=== PATIENT | female | born 1975 | race Caucasian/White ===

== ENCOUNTER → 2016-12-20 | Outpatient (CLI) | payer BC ==
--- NOTE | 2016-12-20 12:48 | MAMMOGRAPHY REPORT ---
BILATERAL DIGITAL SCREENING MAMMOGRAM TOMOSYNTHESIS WITH CAD: 12/20/2016 CLINICAL HISTORY: Routine screening. Patient has no complaints. TECHNIQUE: Breast tomosynthesis in addition to standard 2D mammography was performed. Current study was also evaluated with a Computer Aided Detection (CAD) system. COMPARISON: Comparison is made to exams dated: 01/28/2015 ultrasound, 01/28/2015 mammogram, 01/21/2015 m ammogram, 10/09/2013 mammogram - [facility] [address], and 03/15/2009. BREAST COMPOSITION: There are scattered areas of fibroglandular density in both breasts. FINDINGS: No suspicious masses, calcifications, or areas of architectural distortion are noted in e ither breast. There has been no significant interval change compared to prior exams. IMPRESSION: ACR BI-RADS CATEGORY 1: NEGATIVE There is no mammographic evidence of malignancy. A 1 year screening mammogram is recommended. The p atient will receive written notification of the results. Approximately 10% of breast cancers are not detected with mammography. A negative mammographic repor t should not delay biopsy if a clinically suggestive mass is present. Gemma Humphreys M.D. /:12/20/2016 10:55:43 Lithopone Charger: Belem Padilla, [facility] [address] letter sent: Normal 1/2 BI-RADS Code: ACR BI-RADS Category 1: Negative
== END | disposition home or self-care (01) ==
LOC: C.MAMM 10:32
PROVIDERS: ATTEND Physician Assistant
DX: Z12.31 Encounter for screening mammogram for malignant neoplasm of breast (principal)

== ENCOUNTER 2018-11-14 09:15 | Observation (INO) ==
--- NOTE | 2018-10-24 12:01 | Anesthesiology Consultation ---
Date of Service October 24, 2018 Assessment & Plan (1) Encounter for pre-operative examination: Chart Review Chart Review: Acceptable Risk for Surgery and Patient seen in Pre Admission Testing Consults Requested none Teaching & Discussion Pre-Anesthesia Teaching/Discussion Notes: Instructed NPO after midnight before surgery, except medications with 15 cc of water. Medication instructions provided according to the PAT guidelines. History Surgery Operation Date: 11/14/18 08:35 Proposed Procedures p Robotic Total Laparoscopic Hysterectomy - Javan Fry MD, FACOG Height/Weight Height: 5 ft 6 in Weight: 70.1 kg Allergies Allergy/AdvReac Type Severity Reaction Status Date / Time aspirin Allergy Unknown HIVES Verified 10/17/18 10:47 Penicillins Allergy Unknown HIVES Verified 10/17/18 10:47 Sulfa (Sulfonamide Allergy Unknown HIVES Verified 10/17/18 10:47 Antibiotics) sulfamethoxazole Allergy Unknown Verified 04/04/15 06:22 Medications Home Medications Medication Instructions Recorded Confirmed Last Taken No Known Home Medications 10/17/18 10/17/18 Unknown Past Medical History Medical History Abnormal vaginal bleeding current issue Past Family History Family History Mother FHx: breast cancer Past Surgical History Surgical History History of endometrial ablation Hx of sinus surgery Past Anesthesia History No Hx of Anesthesia Complications and No Family Hx of Anesthesia Complications History of PONV No Motion Sickness Screening History of Motion Sickness: Yes Social History Smoking Status: Never smoker Do You Dip or Chew Tobacco: No Hx Alcohol Use: Yes Alcohol type: wine alcohol intake frequency: a few times a month Hx Substance Use: No Exercise / Class Metabolic Activity II 4-5 Yardwork/Stairs/Walk up hill (7-12K steps per day per fitbit. Able to climb FOS. Denies CP or SOB. ) Review of Systems Patient denies chest pain, shortness of breath, dyspnea on exertion, joint pain , reflux, cough, wheezing, palpitations. Physical Exam Vital Signs BP: 111/78 P: 84 R: 12 T: 98.4 SPO2: 97% on RA ENMT Thyromental Distance: < 3.5 Finger Breadths (3) Mallampati Class: I Neck normal visual inspection and trachea midline; neck extension not limited Respiratory normal respiratory effort Auscultation: lungs clear to auscultation bilaterally Cardiovascular Rate/Rhythm: regular rate and regular rhythm Heart Sounds: no murmur Vessels: no carotid bruit Neurologic moves all extremities Psychiatric Orientation: alert and oriented x 3 Testing Laboratory Results 10/24/18 11:50 10/24/18 11:50 Blood Type A Positive 10/24/18 11:50 Antibody Screen NEGATIVE 10/24/18 11:50
[2018-10-24 12:45] LABS: Basophils # (auto) 0.02 K/uL (0-0.2); Basophils % (auto) 0.2 %; Eosinophils # (auto) 0.04 K/uL (0-0.5); Eosinophils % (auto) 0.5 %; Hematocrit (blood only) 38.4 % (37-47); Hemoglobin 12.7 g/dL (12.0-16.0); Immature Granulocytes # (auto) 0.02 K/uL (0.00-0.02); Immature Granulocytes % (auto) 0.2 %; Lymphocytes # (auto) 1.58 K/uL (1.2-3.4); Lymphocytes % (auto) 17.9 %; Mean Corpuscular Hgb Conc 33.1 g/dL (32-36); Mean Corpuscular Volume 90.1 fL (80-100); Monocytes # (auto) 0.55 K/uL (0.11-0.59); Monocytes % (auto) 6.2 %; Neutrophils # (auto) 6.63 K/uL (1.4-6.5); Platelet Count 247 K/uL (130-400); RDW Coefficient of Variation 13.3 % (11.5-14.5); RDW Standard Deviation 43.7 fL (36.4-46.3); Red Blood Count 4.26 M/uL (4.2-5.4); White Blood Count 8.84 K/uL (4.8-10.8)
[2018-10-24 12:51] LABS: BUN Creatinine Ratio 23.8 (10-20); Calcium 9.1 mg/dl (8.5-10.1); Creatinine Clr Calc Pharmacy 98.4 ml/min; Est GFR (African American) 123.6; Est GFR (Non-African American) 106.6; Potassium 3.6 mmol/L (3.5-5.1)
[~2018-11-14 09:15] MED LIST: ACETAMINOPHEN 1000 MG/100 ML IV IV ONE; CLINDAMYCIN 600 MG/54 ML BAG IV SCH; LACTATED RINGER'S 1,000 ML IV SCH; LR 15ML/HR IV SCH
[2018-11-14] MEDS ORDERED: ONDANSETRON INJ 2 MG/ML 2 ML VIAL IV PRN ×2 (10:10→13:28)
[2018-11-14] MEDS ORDERED: ATROPINE SULFATE 0.1 MG/ML 10ML SYR IV PRN (10:10)
[2018-11-14] MEDS ORDERED: NALOXONE HCL 0.4 MG/1 ML VIAL/CARP IV PRN (10:10)
[2018-11-14] MEDS ORDERED: HYDROmorphone INJ 1 MG/ML SYRINGE IV PRN (10:10)
[2018-11-14] MEDS ORDERED: FLUMAZENIL 0.1 MG/1 ML 10 ML VIAL IV PRN (10:10)
[2018-11-14] MEDS ORDERED: PROMETHAZINE HCL 12.5 MG in SODIUM CHLORIDE 0.9% 50 ML IV PRN ×2 (10:10→13:28)
[2018-11-14] MEDS ORDERED: ePHEDrine sulfate 50 MG/ML AMP IV PRN (10:10)
[2018-11-14] MEDS ORDERED: LABETALOL HCL IV 5 MG/ML 20ML IV PRN (10:10)
[2018-11-14] MEDS ORDERED: GENTAMICIN SULFATE 100 MG in DEXTROSE 5% 100 ML IV SCH (10:30)
[2018-11-14] MEDS ORDERED: fentaNYL citrate 100 MCG/2 ML VIAL ONE (10:51)
[2018-11-14] MEDS ORDERED: MIDAZOLAM HCL 1 MG/ML 2ML VIAL ONE (10:51)
[2018-11-14] MEDS ORDERED: HYDROmorphone INJ 2 MG/ML SYR/VIAL ONE (10:52)
[2018-11-14] MEDS ORDERED: KETAMINE HCL INJ 50 MG/ML 10 ML VIAL ONE (10:52)
--- NOTE | 2018-11-14 11:01 | History & Physical Bridge Note ---
Date of Service November 14, 2018 History & Physical Bridge Note I have examined the patient, reviewed the History & Physical and in the interval since the performance of the History & Physical I have noted the following changes of clinical significance: no changes noted
[2018-11-14] MEDS ORDERED: LIDOCAINE HCL 2% 2 ML VIAL/AMP(20MG/ML) INFIL ONE (11:13)
[2018-11-14] MEDS ORDERED: DEXAMETHASONE SOD INJ 4 MG/ML VIAL ONE (11:13)
[2018-11-14] MEDS ORDERED: PROPOFOL IV EMULSION 10 MG/ML 20 ML VIAL IV ONE (11:13)
[2018-11-14] MEDS ORDERED: ROCURONIUM BROMIDE 10 MG/ML 5 ML VIAL ONE (11:13)
[2018-11-14] MEDS ORDERED: ONDANSETRON INJ 2 MG/ML 2 ML VIAL ONE (11:13)
[2018-11-14] MEDS ORDERED: BUPIVACAINE 0.5 % 5 MG/1 ML MPF 30ML VIAL ONE (11:15)
[2018-11-14] MEDS ORDERED: METHYLENE BLUE 0.5% 10 ML VIAL ONE (11:16)
[2018-11-14] MEDS ORDERED: TISSEEL FIBRIN SEALANT 4ML TOP ONE (12:44)
[2018-11-14] MEDS ORDERED: BISACODYL 10 MG SUPP PR PRN (13:28)
[2018-11-14] MEDS ORDERED: MEPERIDINE HCL 50 MG/ML CARP IV PRN (13:28)
[2018-11-14] MEDS ORDERED: ZOLPIDEM TARTRATE 5 MG TAB PO PRN (13:28)
[2018-11-14] MEDS ORDERED: SIMETHICONE 80 MG CHEW PO PRN (13:28)
[2018-11-14] MEDS ORDERED: MAGNESIUM HYDROXIDE SUSP 30 ML UDC PO PRN (13:28)
[2018-11-14] MEDS ORDERED: OXYCODONE/ACETAMINOPHEN 5mg/325mg TAB PO PRN ×2 (13:28)
--- NOTE | 2018-11-14 13:28 | Post Operative Brief Note ---
Immediate Post Op Note v1 Date of Surgery November 14, 2018 Pre & Post Diagnosis Operation Date: 11/14/18 10:55 Pre-Op Diagnosis: Menorrhagia and Dysmenorrhea Post-Op Diagnosis: Menorrhagia and Dysmenorrhea Procedure Operation Date: 11/14/18 10:55 Actual Procedures p Robotic Assisted Total Laparoscopic Hysterectomy with Bilateral Salpingectomies, and Cystoscopy(Not Applicable) - Javan Fry MD, FACOG Surgeon Javan Fry MD, FACOG Cultural Centre Manager none Estimated Blood Loss 10 Findings Consistent with Post-Op Diagnosis Drains Mendez Catheter (18 Fr. )
--- NOTE | 2018-11-14 14:42 | Anesthesiology Progress Note ---
Date of Service November 14, 2018 Anesthesia Post Procedure Vital Signs Vital Signs: Temp Pulse Pulse Resp BP Pulse Ox 11/14/18 14:25 71 20 106/68 96 11/14/18 14:15 73 17 107/71 96 11/14/18 14:05 67 14 104/70 100 11/14/18 13:55 84 15 107/68 100 11/14/18 13:49 36.0 C L 85 13 101/76 100 11/14/18 09:36 37.2 C 98 H 18 127/80 98 Pain Intensity Abdomen: Pain Intensity: 2 Notes Mental Status: alert / awake / arousable Patient Amnestic to Procedure: Yes Nausea / Vomiting: adequately controlled Pain: adequately controlled Airway Patency, RR, SpO2: stable & adequate BP & HR: stable & adequate Hydration State: stable & adequate Anesthetic Complications: no major complications apparent
[2018-11-14] MEDS ORDERED: ACETAMINOPHEN 325 MG TAB PO PRN (15:45)
[2018-11-14] MEDS ORDERED: LACTATED RINGER'S 1,000 ML IV SCH (15:45)
[2018-11-14] MEDS ORDERED: KETOROLAC 30 MG/ML VIAL IV PRN (16:00)
[2018-11-14] MEDS ORDERED: IBUPROFEN 600 MG TAB PO PRN (18:17)
[2018-11-14] MEDS ORDERED: DOCUSATE SODIUM 100 MG CAP PO SCH (21:00)
--- NOTE | 2018-11-16 09:28 | Operative Report ---
DATE OF OPERATION: 11/14/2018 PREOPERATIVE DIAGNOSES: Menorrhagia, dysmenorrhea. POSTOPERATIVE DIAGNOSES: Menorrhagia, dysmenorrhea. PROCEDURE: Total laparoscopic hysterectomy, bilateral salpingectomy, cystoscopy. SURGEON: Dr. Fry. HIDES AND SKINS COLORER: None. ESTIMATED BLOOD LOSS: 10 mL. SPECIMENS: Uterus, fallopian tubes, cervix. DRAINS: Mendez catheter. ANESTHETIC: General. COMPLICATIONS: None. DESCRIPTION OF PROCEDURE: The patient was given a general anesthetic, prepped and draped in dorsal lithotomy position in [facility]. Bladder drained with a Mendez catheter. V-Care inserted into the uterus in usual fashion. Gloves changed and a subumbilical incision was made with scalpel. Using Saima technique, we did a cut down into the peritoneal cavity. Blunt-tipped Saima trocar placed. Balloon inflated to stabilize the port. CO2 gas used to insufflate the peritoneal cavity. FINDINGS: Upper abdomen normal, no sign of visceral organ injury. Deep Trendelenburg position then obtained. Normal adnexa, normal uterus. Ureters follows a normal course. DESCRIPTION OF PROCEDURE: Two robotic ports, 1 in the left, 1 in the right placed and left upper quadrant accessory port 11 mm bladeless placed. Robot docked. Arm #1 was the monopolar alvin needle putaway driver. Arm #2 was the bipolar [place]. The procedure was begun by first removing the fallopian tubes, 1 on the left, 1 on the right. These were done using electrosurgery and then removing the tube through the accessory port. We then identified the course of the ureter on the left side and then we were able to coagulate the blood supply distal to the left ovary with the bipolar [place] and monopolar alvin to cut this. We were well away from the left ureter. Round ligament coagulated and cut. Uterine vessels skeletonized. Bladder flap sharply dissected. We were then able to coagulate the uterine vessels staying well away from the left ureter. Vessels were then cut with monopolar alvin. The exact same process was continued on the right side. Once both uterine vessels were secured, anterior colpotomy was made with the monopolar alvin. Colpotomy was continued until it was complete and then uterus was pulled into the vagina for pneumoperitoneum. At this stage, hemostasis was excellent. Methylene blue given by Anesthesia. Arm #1 became the Ken needle putaway driver, arm #2 became the Airpush grasper. A 12 inch, 2-0 90-day V-Loc suture then passed through the accessory port. Cuff closed from left to right, back right to left using at least full thickness 1 cm at least bites of vaginal mucosa. Suture was then cut, so there was no tail. Needle removed through the accessory port. Uterus removed from the vagina and seal was airtight. After irrigation and suction, Tisseel 4 mL was applied to the pedicles. Cystoscopy was performed revealing good strong jets of bluish dye from both the left and right ureter openings. No bladder defects. Cystoscope removed and a new Mendez catheter placed. At this stage, the robot was undocked. Gas allowed to escape. Incisions injected with 0.5% Marcaine. Fascia closed with 0 Vicryl and the umbilical and left upper quadrant incisions 4-0 subcuticular Monocryl closures and Dermabond applied. Sponge and instrument counts correct. I attest to the content of the Intraoperative Record and any orders documented therein. Any exceptions are noted below. DILAN
--- NOTE | 2018-11-16 23:36 | Discharge Summary ---
Elissa had a total laparoscopic hysterectomy and cystoscopy on 11/14/2018. This was an uncomplicated procedure. Later in the day, she was discharged home. At that time, she met criteria. She was ambulating, tolerating an oral diet, voiding, had no significant extremity pain and felt well. PHYSICAL EXAMINATION: Her vital signs were stable. She is afebrile. IMPRESSION AND PLAN: Postop day zero. Discharged home. Instructions reviewed. Pain medication given. The patient told to follow up in the office and call sooner if there are problems.
[2018-11-19] MEDS ORDERED: IBUPROFEN 600 MG TAB PO PRN (20:00)
== END 2018-11-14 19:45 | disposition home or self-care (01) ==
LOC: ASU 09:15 → 4N 09:15